=== PATIENT | female | born 1960 | race Caucasian/White ===

== ENCOUNTER → 2019-07-23 15:42 | Outpatient (CLI) | payer MEDICARE, MEDICAID ==
[2014-01-25 08:35] VITALS: BMI 37.4
[~2019-07-23 15:42] MED LIST: BAYER CHEWABLE81 MG PO; GLIMEPIRIDE4 MG PO; GLIPIZIDE10 MG PO; GLUCOPHAGE1000 MG PO; GLUCOPHAGE500 MG PO; LANTUS SOL100 UNIT/1 SC; NORCO 10/325 TA1 TA1 PO; NORVASC10 MG PO; PRINIVIL20 MG PO; VENTOLIN/PR2 MG/5 ML; XANAX0.5 MG; XANAX0.5 MG PO
[2019-07-23 15:58] LABS: HEMATOCRIT 46.4 % (36.0-48.0); HEMOGLOBIN 14.7 g/dL (12-16); MCH 29.1 pg (26.0-34.0); MCHC 31.7 g/dL (31.0-37.0); MCV 91.9 fL (80.0-100.0); MEAN PLATELET VOLUME 10.9 fL (7.4-10.4); RBC 5.05 10x6/uL (4.00-5.40); RDW 13.7 % (11.5-14.5); WBC 6.7 10x3/uL (4.8-10.8)
[2019-07-23 16:09] LABS: PLATELET COUNT 188 10x3/uL (130-400)
[2019-07-23 16:19] LABS: ALKALINE PHOSPHATASE 119 U/L (30-120); ALT (SGPT) 29 U/L (10-68); BILIRUBIN - TOTAL 0.22 mg/dL (0.2-1.3); CALC OSMOLALITY 284 mosm/kg (275-300); CALCIUM 8.8 mg/dL (8.5-10.1); CARBON DIOXIDE 31.3 mmol/L (21.0-32.0); CHLORIDE - SERUM 99 mmol/L (98-107); CHOL - HDL RATIO 3.8 ratio (2.3-4.1); CHOLESTEROL, TOTAL 124 mg/dL (0-200); CREATININE - SERUM 0.9 mg/dL (0.6-1.3); GLUCOSE 238 mg/dL (74-106); HDL CHOLESTEROL 33 mg/dL (32-96); POTASSIUM - SERUM 3.2 mmol/L (3.5-5.1); PROTEIN - SERUM 7.2 g/dL (6.4-8.2); SODIUM 139 mmol/L (136-145); UREA NITROGEN 9 mg/dL (7-18); eGFR NON AFRICAN AMERICAN 67 mL/min (90-120)
[2019-07-23 16:21] LABS: TRIGLYCERIDE 519 mg/dL (30-200)
[2019-07-23 19:19] LABS: MCHC 32.6 g/dL (31.0-37.0); MEAN PLATELET VOLUME 10.4 fL (7.4-10.4); RBC 4.83 10x6/uL (4.00-5.40); RDW 13.5 % (11.5-14.5)
[2019-07-23 19:20] LABS: PLATELET COUNT 191 10x3/uL (130-400)
[2019-07-23 19:31] LABS: LYMPHOCYTES 47 % (15-50); MONOCYTES 3 % (2-11); NEUTROPHILS 50 % (40-80); PLATELET ESTIMATE NORMAL
[2019-07-23 19:39] LABS: LYMPHOCYTES 46 % (15-50); MONOCYTES 3 % (2-11); NEUTROPHILS 49 % (40-80); PLATELET ESTIMATE NORMAL
== END | disposition home or self-care (01) ==
LOC: D.LABREF 15:42
PROVIDERS: ATTEND Legal Medicine
DX: I10 Essential (primary) hypertension (principal); E11.618 Type 2 diabetes mellitus with other diabetic arthropathy; E44.0 Moderate protein-calorie malnutrition; E78.2 Mixed hyperlipidemia